=== PATIENT | male | born 1945 | race Caucasian/White ===

== ENCOUNTER 2019-03-01 15:53 | Emergency (ER) | payer MEDICARE ==
[~2019-03-01] VITALS: Ht 180.3 cm; Wt 95.3 kg
[~2019-03-01 15:53] MED LIST: KEFLEX500 MG PO; VICODIN 500 MG-1 TAB PO
[2019-03-01] MEDS ORDERED: NORCO 5-325 TA1 EACH PO (18:21)
== END 2019-03-01 18:07 | disposition home or self-care (01) ==
LOC: ED 15:53
DX: S82.144A Nondisplaced bicondylar fracture of right tibia, initial encounter for closed fracture (principal); W18.39XA Other fall on same level, initial encounter; X50.0XXA Overexertion from strenuous movement or load, initial encounter; Y93.89 Activity, other specified; Y92.89 Other specified places as the place of occurrence of the external cause; Y99.8 Other external cause status

== ENCOUNTER → 2019-03-21 | Outpatient (CLI) | payer MEDICARE ==
[~2019-03-21] MED LIST changes: +NORCO 5-325 TA1 EACH PO
== END | disposition home or self-care (01) ==
LOC: ORTHO 00:49
DX: S82.121D Displaced fracture of lateral condyle of right tibia, subsequent encounter for closed fracture with routine healing (principal); M25.461 Effusion, right knee; X58.XXXD Exposure to other specified factors, subsequent encounter

== ENCOUNTER → 2019-04-11 | Outpatient (CLI) | payer MEDICARE | END | disposition home or self-care (01) | LOC: ORTHO 01:18 | DX: S82.121D Displaced fracture of lateral condyle of right tibia, subsequent encounter for closed fracture with routine healing (principal); X58.XXXD Exposure to other specified factors, subsequent encounter ==

== ENCOUNTER → 2019-05-14 | Outpatient (CLI) | payer MEDICARE | END | disposition home or self-care (01) | LOC: ORTHO 01:12 | DX: S82.121D Displaced fracture of lateral condyle of right tibia, subsequent encounter for closed fracture with routine healing (principal); X58.XXXD Exposure to other specified factors, subsequent encounter ==

== ENCOUNTER → 2019-06-20 | Outpatient (CLI) | payer MEDICARE | END | disposition home or self-care (01) | LOC: ORTHO 00:53 | DX: S82.121D Displaced fracture of lateral condyle of right tibia, subsequent encounter for closed fracture with routine healing (principal); M17.0 Bilateral primary osteoarthritis of knee; X58.XXXD Exposure to other specified factors, subsequent encounter ==